=== PATIENT | female | born 1960 | race Caucasian/White ===

== ENCOUNTER → 2016-08-21 | Day surgery (SDC) | payer MEDICARE, OTHER ==
[~2016-08-21] MED LIST: ALBUAER3 INH; ESCI10TA PO; HYDR-3583 PO; HYOS0.128 PO; INCOBOTULINUMTOXINA 100 UNITS VIAL IM ONE; LIPI40TA PO; NEXI40CA PO; NITR0.4S SL; SODIUM CHLORIDE 0.9% 10 ML VIAL ONE; SYMB80AE INH; TIZA4CAP3 PO; VALT500T PO
--- NOTE | 2016-08-26 12:45 | M6 ---
cc: MANASA SALDIVAR M.D. DATE 08/21/2016 DATE OF 1960 PROCEDURE Injection botulinum toxin type A (Xeomin) right trapezius and posterior cervical musculature. PROCEDURE NOTE History and physical was completed and signed. Consent was signed. Procedure site was marked. Medications were listed and reconciled. Pain score was recorded. Allergies were noted. Time out was taken. Fluoroscopy time was recorded where applicable. Blood pressure cuff, pulse oximeter were applied. The patient was placed in the sitting position. The skin over the right trapezius and cervical area was prepped with alcohol. The areas of greatest spasticity were identified. A 27 gauge needle was used to inject a total of 200 units of Xeomin at six different locations which corresponded to the areas of greatest spasticity. Following this, the patient was observed in the recovery area with stable vital signs prior to being discharged. W. MD RADHA Page/BISMARK /10:40 AM /12:38 PM
== END | disposition home or self-care (01) ==
LOC: PHSDC 09:45
PROVIDERS: ATTEND Pain Medicine Interventional Pain Medicine
DX: G24.3 Spasmodic torticollis (principal); R51 Headache
CPT/HCPCS: 64616; J0588

== ENCOUNTER → 2017-09-09 | Day surgery (SDC) | payer MEDICARE, OTHER ==
[~2017-09-09] MED LIST changes: +BETH25TA2 PO; +BUPIVACAINE HCL PF 0.75% 30 ML VIAL ONE; +CYANOCOBALAMIN 1000 MCG/ML VIAL IM ONE; -HYOS0.128 PO; +HYOS1TAB9 PO; -INCOBOTULINUMTOXINA 100 UNITS VIAL IM ONE; +MEPERIDINE HCL 25 MG/ML VIAL IV ONE; +PROPOFOL 200 MG/20 ML AMP IV ONE; -SODIUM CHLORIDE 0.9% 10 ML VIAL ONE; +TRIAMCINOLONE ACETONIDE 40 MG/ML VIAL NERV BLOCK ONE
--- NOTE | 2017-09-11 20:27 | M6 ---
cc: MANASA CARRILLO M.D. DATE: 09/09/2017. DATE OF : 1960 PROCEDURE PERFORMED: S5 nerve neurolysis. DESCRIPTION OF THE PROCEDURE IN DETAIL: History and physical was completed and signed. Consent was signed. Procedure site was marked. Medications were listed and reconciled. Pain score was recorded. Allergies were noted. Time out was taken. Fluoroscopy time was recorded where applicable. Sedation was administered or directed by Dr. Carrillo. The patient was given oxygen. The patient was monitored by a registered nurse. Total procedure time was greater than 15 minutes. IV was started, blood pressure cuff, pulse oximeter and EKG were applied. The patient was placed in the prone position on a Seng table and sedated with small amounts of propofol titrated to effect. Vital signs were monitored and remained stable throughout the procedure. The sacral hiatus and the coccyx were palpated. The skin was prepped with alcohol and 10% Betadine solution. A 1/2-inch 25-gauge spinal needle was inserted down to the periosteum just distal to the sacral hiatus and then in a fan-like fashion across the distal part of the coccyx, the patient was given 8 mL of Marcaine 0.75%, 40 milligrams of Kenalog and 2000 micrograms of vitamin B12. Following the procedure, the patient was taken to the recovery room with stable vital signs neurologically intact. W. MD RADHA Page/LAVERNE /7:32 AM /8:21 PM
== END | disposition home or self-care (01) ==
LOC: PHSDC 06:28
PROVIDERS: ATTEND Pain Medicine Interventional Pain Medicine
DX: M54.5 Low back pain (principal)
CPT/HCPCS: 64640; 99152; J2175; J3301; J3420

== ENCOUNTER 2017-09-25 09:40 | Emergency (ER) | payer MEDICARE, OTHER ==
[~2017-09-25] VITALS: Ht 157.5 cm; Wt 72.4 kg
[~2017-09-25 09:40] MED LIST changes: -BUPIVACAINE HCL PF 0.75% 30 ML VIAL ONE; -CYANOCOBALAMIN 1000 MCG/ML VIAL IM ONE; -MEPERIDINE HCL 25 MG/ML VIAL IV ONE; -PROPOFOL 200 MG/20 ML AMP IV ONE; -TRIAMCINOLONE ACETONIDE 40 MG/ML VIAL NERV BLOCK ONE
[2017-09-25 09:46] VITALS: BP 178/87; PULSE 74; RESP 16; TEMP 98.1; O2SAT 95
--- NOTE | 2017-09-25 10:14 | PD ---
HPI Chief Complaint: Headache Time Seen by Provider: 09:53 Travel History International Travel<30 days: No Contact w/Intl Traveler<30days: No Traveled to known affect area: No History of Present Illness HPI The patient was seen and examined in the presence of the nurse. She complains of headache. Severity is moderate. It's diffuse encompassing her entire head. She had an epidural steroid injection in her neck on . That same day after the injection she developed this headache. No injury or fever. She has history of migraines and this feels totally different. Symptoms are exacerbated when she stands up and moves around and symptoms are alleviated when she lies flat. Duration 2 days. She takes no blood thinners. She has chronic neck pain and takes hydrocodone 3 times a day. She has chronic left arm numbness and paresthesia for the last 4 months. That is unchanged today. PFSH Past Medical History Arthritis: Yes Blood Disorders: No Depression: Yes Cancer: Yes (cervical/vulva) Cardiac Catheterization: No Cardiovascular Problems: Yes (internal heart monitor, syncopy x2, stress test ) High Cholesterol: Yes Chemotherapy: No Congestive Heart Failure: No Diabetes: No Diminished Hearing: No Endocrine: No Gastrointestinal Disorders: Yes GERD: Yes Glaucoma: Yes (both eyes) Genitourinary: Yes Headaches: Yes Hiatal Hernia: Yes Hypertension: No Immune Disorder: Yes (FIBROMYALGIA) Kidney Stones: Yes Musculoskeletal: Yes Neurologic: Yes (RT LEG NERVE PAIN) Psychiatric: Yes Reproductive: Yes Respiratory: Yes (copd) Migraines: Yes Radiation Therapy: Yes Ulcer: Yes PNEUMOCCOCAL Vaccine (Year): 1 ?: Not Menopausal: Yes Past Surgical History Abdominal Surgery: Yes (HERNIA X 2) AICD: No Appendectomy: Yes Body Medical Devices: SURGICAL MARKER, "INTERNAL HEART MONITOR" Cholecystectomy: Yes Coronary Artery Bypass Graft: No Eye Surgery: Yes (GLAUCOMA) Gynecologic Surgery: Yes (VULVECTOMY) Hysterectomy: Yes Joint Replacement: No Neurologic Surgery: Yes Pacemaker: No Other Surgery: Yes (HYSTERECTOMY, PARTIAL VULVECTOMY, APPENDECTOMY, AND 3 HERNIA REPAIRS) Social History Alcohol Use: No Tobacco Use: Yes (1PPD) Substance Use: No Allergies-Medications (Allergen,Severity, Reaction): Coded Allergies: acetaminophen (Unverified Allergy, Severe, 09/25/17) buprenorphine (Unverified Allergy, Severe, 09/25/17) diatrizoate meglumine (Unverified Allergy, Severe, THROAT SWELLING, ) gadobenic acid (Unverified Allergy, Severe, THROAT SWELLING, 09/25/17) gadodiamide (Unverified Allergy, Severe, THROAT SWELLING, 09/25/17) gadoteridol (Unverified Allergy, Severe, THROAT SWELLING, 09/25/17) iodixanol (Unverified Allergy, Severe, THROAT SWELLING, 09/25/17) iohexol (Unverified Allergy, Severe, THROAT SWELLING, 09/25/17) oxycodone (Unverified Allergy, Severe, 09/25/17) propoxyphene (Unverified Allergy, Severe, 09/25/17) Sulfa (Sulfonamide Antibiotics) (Unverified Allergy, Unknown, THROAT SWELLING, 09/25/17) ampicillin (Unverified Allergy, Unknown, THROAT SWELLING, 09/25/17) doxycycline (Unverified Allergy, Unknown, Rash, 09/25/17) erythromycin base (Unverified Allergy, Unknown, THROAT SWELLING, 09/25/17) minocycline (Unverified Allergy, Unknown, Rash, 09/25/17) penicillin G (Unverified Allergy, Unknown, THROAT SWELLING, 09/25/17) tigecycline (Unverified Allergy, Unknown, Rash, 09/25/17) Uncoded Allergies: ENBREL (Allergy, Severe, 09/25/17) . IV DYE (Allergy, Severe, THROAT SWELLING, 09/25/17) . Reported Meds & Prescriptions Reported Meds & Active Scripts Active Reported Bethanechol 25 Mg Tab 25 Mg PO TID Nitrostat SL (Nitroglycerin) 0.4 Mg Subl 0.4 Mg SL DIRECTED PRN 1 tablet under the tongue as needed for chest pain. Repeat every 5 minutes for a total of 3 DOSES or call 911 if NO relief. Symbicort Inh (Budesonide/Formoterol Fumarate) 80-4.5 Mcg/Act Aero 2 Puff INH Q12HR Proair Hfa 8.5 GM Inh (Albuterol Sulfate) 90 Mcg/Act Aer 2 Puff INH Q4-6H PRN 108 mcg/actuation Hyoscyamine (Hyoscyamine Sulfate) 0.125 Mg Tab 0.125 Mg PO Q4H Valtrex (Valacyclovir HCl) 500 Mg Tab 500 Mg PO PRN Lipitor (Atorvastatin Calcium) 40 Mg Tab 40 Mg PO HS Escitalopram (Escitalopram Oxalate) 10 Mg Tab 10 Mg PO DAILY Tizanidine (Tizanidine HCl) 4 Mg Cap 4 Mg PO TID Nexium (Esomeprazole DR) 40 Mg Capdr 40 Mg PO DAILY Hydrocodone-Acetaminophen 10-325 mg Tab 1 Tab PO Q8HR PRN Review of Systems General / Constitutional: No: Fever Eyes: No: Visual changes HENT: Positive: Headaches Cardiovascular: No: Chest Pain or Discomfort Respiratory: No: Shortness of Breath Gastrointestinal: No: Abdominal Pain Genitourinary: No: Dysuria Musculoskeletal: No: Pain Skin: No Rash Neurologic: Positive: Headache, Paresthesia, Sensory Disturbance, No: Weakness Psychiatric: No: Depression Endocrine: No: Polydipsia Hematologic/Lymphatic: No: Easy Bruising Physical Exam Narrative GENERAL: Well-nourished, well-developed patient with headache . SKIN: Focused skin assessment reveals no rash and nodules. Skin is Warm and dry. HEAD: Atraumatic. Normocephalic. EYES: Pupils equal and round. No scleral icterus. No injection or drainage. ENT: No nasal bleeding or discharge. Mucous membranes pink and moist. NECK: Trachea midline. No JVD. CARDIOVASCULAR: Regular rate and rhythm. No murmur appreciated. RESPIRATORY: No accessory muscle use. Clear to auscultation. Breath sounds equal bilaterally. GASTROINTESTINAL: Abdomen soft, non-tender, nondistended. Hepatic and splenic margins not palpable. MUSCULOSKELETAL: No obvious deformities. No clubbing. No cyanosis. No edema. NEUROLOGICAL: Awake and alert. No obvious cranial nerve deficits. Motor grossly within normal limits. Normal speech. PSYCHIATRIC: Appropriate mood and affect; insight and judgment normal. Data Data Last Documented VS Vital Signs Date Time Temp Pulse Resp B/P (MAP) Pulse Ox O2 Delivery O2 Flow Rate FiO2 09/25/17 09:46 98.1 74 16 178/87 (117) [address] Brain W/O Iv Contrast(Rout) (09/25/17 ) Ondansetron Inj (Zofran Inj) (09/25/17 10:15) Hydromorphone Pf Inj (Dilaudid Pf Inj) (09/25/17 10:15) MDM Medical Decision Making Medical Screen Exam Complete: Yes Emergency Medical Condition: Yes Medical Record Reviewed: Yes Differential Diagnosis Differential diagnosis includes migraine, tension headache, cluster headache, meningitis, post-epidural puncture headache Narrative Course I have reviewed the patient's electronic medical record. I gave her injection of pain and nausea medicine Brain CT is normal Recommend follow-up with Dr. Carrillo She is neurologically intact Diagnosis Primary Impression: Headache Qualified Codes: R51 - Headache Additional Instructions: The patient was advised to follow up with their physician and return if they worsen. Med/Other Pt SpecificInfo: Other Disposition: 01 DISCHARGE HOME Condition: Stable Jeremiah Garay MD Sep 25, 2017 10:14
[2017-09-25] MEDS ORDERED: HYDROmorphone HCL PF 2 MG/ML VIAL IM ONE (10:15)
[2017-09-25] MEDS ORDERED: ONDANSETRON HCL 4 MG/2 ML VIAL IM ONE (10:15)
--- NOTE | 2017-09-25 10:43 | RADRPT ---
EXAM DATE/TIME: 09/25/2017 10:21 [facility] COMPARISON: CT BRAIN W/O CONTRAST, September 12, 2014, 18:16. INDICATIONS : Headache and nausea for three days following an epidural. RADIATION DOSE: 60.94 CTDIvol (mGy) MEDICAL HISTORY : Cardiovascular disease. Chronic obstructive pulmonary disease. Cervical and vulvar cancer. SURGICAL HISTORY : None. ENCOUNTER: Initial ACUITY: 1 day PAIN SCALE: 5/10 LOCATION: cranial TECHNIQUE: Multiple contiguous axial images were obtained of the head. Using automated exposure control and adj ustment of the mA and/or kV according to patient size, radiation dose was kept as low as reasonably a chievable to obtain optimal diagnostic quality images. DICOM format image data is available electro nically for review and comparison. FINDINGS: CEREBRUM: The ventricles are normal for age. No evidence of midline shift, mass lesion, hemorrhage or acute in farction. No extra-axial fluid collections are seen. POSTERIOR FOSSA: The cerebellum and brainstem are intact. The 4th ventricle is midline. The cerebellopontine angle i s unremarkable. EXTRACRANIAL: The visualized portion of the orbits is intact. SKULL: The calvaria is intact. No evidence of skull fracture. CONCLUSION: Normal examination for a patient of this age. No significant change has occurred. Umberto Faust MD on September 25, 2017 at 10:41 Board Certified Radiologist. This report was verified electronically.
== END 2017-09-25 13:15 | disposition home or self-care (01) ==
LOC: PHED 09:40
DX: R51 Headache (principal); M79.7 Fibromyalgia; F17.210 Nicotine dependence, cigarettes, uncomplicated; R20.0 Anesthesia of skin; R20.2 Paresthesia of skin; M54.2 Cervicalgia; G89.29 Other chronic pain
CPT/HCPCS: 70450; 96372; 99284; J1170; J2405

== ENCOUNTER → 2017-11-03 | Outpatient (CLI) | payer MEDICARE, OTHER ==
--- NOTE | 2017-11-03 13:14 | RADRPT ---
EXAM DATE/TIME: 11/03/2017 13:04 [facility] COMPARISON: CHEST PA & LAT, August 11, 2015, 11:23. INDICATIONS : Evaluate for pneumonia, pneumothorax, or communicable disease. MEDICAL HISTORY : Internal Heart Monitor. Cardiovascular disease. Chronic obstructive pulmonary disease. Cervical and v ulvular cancer. SURGICAL HISTORY : Appendectomy. Hysterectomy. Cholecystectomy. ENCOUNTER: Initial ACUITY: 1 day PAIN SCORE: 0/10 LOCATION: Bilateral chest FINDINGS: PA and lateral views of the chest demonstrate the lungs to be symmetrically aerated without evidence of mass, infiltrate or effusion. The cardiomediastinal contours are unremarkable. Osseous structure s are intact. CONCLUSION: No acute disease. No significant change has occurred. Umberto Faust MD on November 03, 2017 at 13:12 Board Certified Radiologist. This report was verified electronically.
[2017-11-03 13:26] LABS: BILIRUBIN, URINE NEG (NEG); BLOOD, URINE NEG (NEG); GLUCOSE,URINE NEG (NEG); KETONE, URINE NEG (NEG); MUCUS URINE FEW /lpf (OCC); NITRITE,URINE NEG (NEG); PH, URINE 5.5 (5.0-8.5); SQUAMOUS EPITHELIAL CELL URINE 1 /hpf (0-5); URINE COLOR YELLOW (YELLW/STRAW); URINE LEUKOCYTE ESTERASE NEG (NEG)
[2017-11-03 13:28] LABS: AUTOMATED NEUTROPHIL # 7.9 TH/MM3 (1.8-7.7); BASOPHIL % 0.3 % (0.0-2.0); EOSINOPHIL # 0.1 TH/MM3 (0-0.4); EOSINOPHIL % 0.7 % (0.0-4.0); HEMATOCRIT 43.3 % (35.0-46.0); HEMOGLOBIN 14.4 GM/DL (11.6-15.3); LYMPH % 29.3 % (9.0-44.0); LYMPHOCYTE # 3.7 TH/MM3 (1.0-4.8); MEAN CELL VOLUME 92.5 FL (80.0-100.0); MEAN CORPUSCULAR HEMOGLOBIN 30.8 PG (27.0-34.0); MEAN CORPUSCULAR HGB CONC 33.3 % (32.0-36.0); MEAN PLATELET VOLUME 6.7 FL (7.0-11.0); MONO % 7.1 % (0.0-8.0); MONOCYTE # 0.9 TH/MM3 (0-0.9); NEUT % 62.6 % (16.0-70.0); PLATELET COUNT 248 TH/MM3 (150-450); RED BLOOD COUNT 4.68 MIL/MM3 (4.00-5.30); RED CELL DISTRIBUTION WIDTH 16.5 % (11.6-17.2); WHITE BLOOD COUNT 12.6 TH/MM3 (4.0-11.0)
[2017-11-03 14:10] LABS: ALBUMIN 3.3 GM/DL (3.4-5.0); AST (GOT) 15 U/L (15-37); BICARBONATE 28.8 MEQ/L (21.0-32.0); BLOOD UREA NITROGEN 8 MG/DL (7-18); CALCIUM 8.3 MG/DL (8.5-10.1); CHLORIDE 104 MEQ/L (98-107); CREATININE 0.59 MG/DL (0.50-1.00); GLOMERULAR FILTRATION RATE 105 ML/MIN (>89); GLUCOSE,FASTING 105 MG/DL (74-99); SODIUM (NA) 139 MEQ/L (136-145)
[2017-11-03 14:13] LABS: ALKALINE PHOSPHATASE 84 U/L (45-117); ALT (GPT) 18 U/L (10-53); TOTAL BILIRUBIN ADULT 0.2 MG/DL (0.2-1.0); TOTAL PROTEIN 6.9 GM/DL (6.4-8.2)
== END ==
LOC: CPRE 12:12
PROVIDERS: ATTEND Neurological Surgery
DX: Z01.812 Encounter for preprocedural laboratory examination (principal); Z01.811 Encounter for preprocedural respiratory examination; M48.02 Spinal stenosis, cervical region; M54.2 Cervicalgia
CPT/HCPCS: 36415; 71046; 80053; 81001; 85025; 85610; 85730; 87640; 87641

== ENCOUNTER 2017-11-04 08:30 | Inpatient (IN) | payer MEDICARE, OTHER ==
[~2017-11-04] VITALS: Ht 157.5 cm; Wt 86.0 kg
[2017-11-05] MEDS ORDERED: LACTATED RINGER'S 1000 ML IV PRN (06:30)
[2017-11-05] MEDS ORDERED: METOPROLOL TARTRATE 25 MG TAB PO PRN (06:30)
[2017-11-05] MEDS ORDERED: SODIUM CHLORID 0.9% 500 ML IV PRN (06:30)
[2017-11-05] MEDS ORDERED: VANCOMYCIN HCL 1000 MG VIAL ONE (06:43)
[2017-11-05] MEDS ORDERED: GELFOAM SIZE 100 ONE (06:45)
[2017-11-05] MEDS ORDERED: SODIUM CHLOR 0.9% 1000 ML INJ 1,000 ML IV SCH (06:45)
[2017-11-05] MEDS ORDERED: VANCOMYCIN 1000 MG/NS 250 ML ON-CALL IV SCH ×2 (06:45)
[2017-11-05] MEDS ORDERED: THROMBIN (TOPICAL) 5,000 UNIT VIAL ONE (06:46)
[2017-11-05] MEDS ORDERED: BUPIVACAINE/EPINEPHRINE 0.5% PF 30 ML VIAL ONE (07:33)
[2017-11-05] MEDS ORDERED: BUPIVACAINE/EPINEPHRINE 0.5% 50 ML VIAL ONE (07:34)
[2017-11-05] MEDS ORDERED: DO NOT ADM ANY ANTICOAGULANT DRUGS PRN (12:49)
[2017-11-05] MEDS ORDERED: *morphine SULFATE 8 MG/ML PERIprocedure ONLY ONE ×2 (12:57→13:15)
[2017-11-05] MEDS ORDERED: MAGNESIUM HYDROXIDE SUSP 30 ML CUP PO PRN (13:00)
[2017-11-05] MEDS ORDERED: SENNOSIDES 8.6 MG TAB PO PRN (13:00)
[2017-11-05] MEDS: BETHANECHOL CHL 25 MG TAB PO SCH ×2 (13:00→18:48)
[2017-11-05] MEDS ORDERED: MENTHOL LOZENGE BUCCAL PRN (13:00)
[2017-11-05] MEDS ORDERED: ALBUTEROL SULFATE 90 MCG/ACT HFA 8 GM INHALER INH PRN (13:00)
[2017-11-05] MEDS ORDERED: cloNIDine HCL 0.1 MG TAB PO PRN (13:00)
[2017-11-05] MEDS ORDERED: PROMETHAZINE INJ 25 MG/ML VIAL IM PRN (13:00)
[2017-11-05] MEDS ORDERED: ALUMINUM/MAGNESIUM/SIMETH 30 ML CUP PO PRN (13:00)
[2017-11-05] MEDS ORDERED: LACTULOSE SYRUP 20 GM/30 ML CUP PO PRN (13:00)
[2017-11-05] MEDS ORDERED: ONDANSETRON HCL 4 MG/2 ML VIAL IV PUSH PRN (13:00)
[2017-11-05] MEDS ORDERED: BISACODYL 10 MG SUPP RECTAL PRN (13:00)
[2017-11-05] MEDS ORDERED: ACETAMINOPHEN/HYDROcodone 325 MG/10 MG TAB PO PRN (13:00)
[2017-11-05] MEDS: HYOSCYAMINE 0.125 MG TAB PO SCH ×3 (13:00→20:18)
[2017-11-05] MEDS ORDERED: NITROGLYCERIN 0.4 MG SL 25 TABS/BTL SL PRN (13:00)
[2017-11-05] MEDS ORDERED: DEXAMETHASONE SOD PHOS 4 MG/ML VIAL IV PUSH SCH (13:00)
[2017-11-05] MEDS ORDERED: SODIUM CHLORIDE 0.9% FLUSH 10 ML FLUSH IV FLUSH PRN (13:00)
[2017-11-05] MEDS ORDERED: ACETAMINOPHEN 325 MG TAB PO PRN (13:00)
--- NOTE | 2017-11-05 13:00 | PD.OP ---
Marietta Sanchez MD Operative Report Date of Surgery: Nov 05, 2017 Preoperative Diagnosis: Intractable neck pain with bilateral radiculopathy; C6-7 degenerative disc disease with disc osteophyte complex and associated spinal/foraminal stenosis; history of C5-6 anterior cervical fusion with plate placement Postoperative Diagnosis: Same Procedure: Anterior cervical C6-7 microdiscectomy with fusion; anterior C6-7 cervical plate placement; removal of anterior C5-6 cervical plate; C6-7 interbody cage placement; microsurgical technique Anesthesia: Gen. endotracheal by Tigist glaser Surgeon: Kenan Interiano M.D. [employer] [facility] Manager(s): Basilio Almendarez Operation and Findings: Following administration of general endotracheal anesthesia, the patient received a gram of vancomycin and Decadron 10 mg intravenously. Sequential compression devices were placed in supine position on a Seng table and all pressure points adequately padded. The head secured in a donut and anterior cervical region then shaved and prepped with Chloraprep and sterilely draped with Ioban along with the usual sterile draping. A transverse skin incision on the left side of the neck using the previous incision site was then made after infiltrating the skin with 0.5% Marcaine with epinephrine solution extending down through the platysma. At the anterior border of the sternocleidomastoid further dissection was undertaken developing a plane between the carotid sheath laterally and the trachea esophagus medially. The prevertebral fascia was exposed and dissected out. The medial attachments of the longus colli muscles were detached and a self-retaining retractor used for exposure. The C5-6 disc space was localized the along with anterior cervical plate and lateral fluoroscopy. In order to access the exposure was C6-7 level the plate was removed and [place] distraction screws 14 mm length were placed one in the C6 and one in the C7 body for interbody distraction and exposure. Fusion at the C5 -6 level was evident. There was significant disc degeneration with disc height collapse and anterior osteophytes noted at the C6-7 level and the osteophytes were resected with a Leksell and annulus incised with a 15 blade and further dissection undertaken using microtechnique with microscope magnification. Diskectomy was undertaken with pituitaries and the endplates were also decorticated with curettes and drill bit. And more posteriorly there was disk osteophyte complex compressing the thecal sac along with a significant uncovertebral joint hypertrophy with foraminal stenosis which was decompressed along with removal of the posterior longitudinal ligaments at both levels. The foramen was decompressed bilaterally using a Kerrison's and palpation with a nerve hook, the exiting nerve roots were felt to be free. The area was then copiously irrigated. I then placed a Peek cage packed with local autograft bone at the C6-7 interspace under fluoroscopy guidance. Rockbridge distraction pins were removed and the holes plugged with Gelfoam for hemostasis. In order to facilitate the fusion and provide stabilization, a Precision spine cervical plate was then placed with two 14 mm variable angle screws in the C6 body and two 14 mm fixed angle screws in the C7 body. The plate screw locking mechanism was then engaged. AP and lateral fluoroscopy confirmed good placement of the construct and the retractor was then removed. Muscular bleeding points were cauterized with bipolar cautery and Gelfoam was then also used for hemostasis which was removed. The platysma was then approximated using 3-0 Vicryl interrupted stitches and 3-0 Vicryl subcuticular stitch also placed in an interrupted fashion, and final skin closure was with Mastisol and Steri-Strips. Sterile dressing was then applied. Her neck was immobilized in a Seminole collar. The patient was then extubated and taken to the recovery room. There are no intraoperative complications and all sponge and needle counts were correct at the end of procedure. Estimated blood loss was about 50 cc. The patient did undergo intraoperative neurologic monitoring which remained stable throughout the surgery. Kenan Interiano MD Nov 05, 2017 13:00
[2017-11-05] MEDS ORDERED: HYDR-3583 PO (13:03)
[2017-11-05] MEDS ORDERED: TIZA4CAP3 PO (13:03)
[2017-11-05] MEDS ORDERED: MIDAZOLAM HCL 2 MG/2 ML VIAL ONE (13:03)
[2017-11-05] MEDS ORDERED: NS + KCL 20 MEQ INJ 1,000 ML IV SCH (13:15)
[2017-11-05] MEDS ORDERED: NEOSTIGMINE 5 MG/5 ML SYRINGE IV PUSH ONE (13:24)
[2017-11-05] MEDS ORDERED: ePHEDrine/NS 25 MG/5 ML SYRINGE IV ONE (13:24)
[2017-11-05] MEDS ORDERED: PROPOFOL 200 MG/20 ML AMP IV ONE (13:24)
[2017-11-05] MEDS ORDERED: ONDANSETRON HCL 4 MG/2 ML VIAL IV ONE (13:24)
[2017-11-05] MEDS ORDERED: GLYCOPYRROLATE 1 MG/5 ML SYRINGE IV PUSH ONE (13:24)
[2017-11-05] MEDS ORDERED: DEXAMETHASONE SOD PHOS 4 MG/ML VIAL IV ONE (13:24)
[2017-11-05] MEDS ORDERED: NORMOSOL R INJ 1,000 ML IV ONE (13:24)
[2017-11-05] MEDS ORDERED: PHENYLEPH/NS 1000 MCG/10 ML SYR IV ONE (13:24)
[2017-11-05] MEDS ORDERED: ROCURONIUM INJ 50 MG/5 ML SYRINGE IV PUSH ONE (13:24)
[2017-11-05] MEDS ORDERED: LIDOCAINE HCL 1% PF 5 ML SYRINGE OTHER ONE (13:24)
--- NOTE | 2017-11-05 13:44 | RADRPT ---
EXAM DATE/TIME: 11/05/2017 09:39 [facility] COMPARISON: No previous studies available for comparison. INDICATIONS : C5-6 hardware removal with C6-7 anterior cervical disc fusion. MEDICAL HISTORY : Chronic obstructive pulmonary disease. Gastroesophageal reflux disease. Osteoarthritis. Cervical carcimona. SURGICAL HISTORY : Appendectomy. Cholecystectomy. Fusion, cervical. Hysterectomy. Loop recorder. ENCOUNTER: Initial ACUITY: 1 day PAIN SCORE: Non-responsive. LOCATION: Cervical spine. FINDINGS: AP and lateral views of the cervical spine were obtained and demonstrate the patient status post lowe r cervical fusion at the C6-7 level with screw plate fixation device. There are metallic markers in t he region of the interspace. The patient appears status post fusion of the C5-6 level. A nasogastric tube and temperature probe are present. CONCLUSION: 1. Status post anterior cervical fusion at the C6-7 level. 2. The patient also appears status post more remote fusion at C5-6 with no hardware. Too Mcdowell MD on November 05, 2017 at 13:40 Board Certified Radiologist. This report was verified electronically.
[2017-11-05] MEDS ORDERED: HYDROmorphone HCL PF 2 MG/ML VIAL ONE (13:51)
[2017-11-05 16:00] VITALS: BP 126/66; PULSE 78; RESP 16; TEMP 98.4; O2SAT 93
[2017-11-05] MEDS: MORPHINE SULFATE 2 MG/ML INJ IV PUSH PRN ×2 (17:03→20:20)
[2017-11-05] MEDS: DEXAMETHASONE SOD PHOS 4 MG/ML VIAL IV PUSH SCH ×2 (17:04→20:19)
[2017-11-05] MEDS: ACETAMINOPHEN/HYDROcodone 325 MG/10 MG TAB PO PRN ×2 (18:52→23:24)
[2017-11-05 20:00] VITALS: BP 119/70; PULSE 78; RESP 16; TEMP 98; O2SAT 96
[2017-11-05] MEDS: DOCUSATE SODIUM 50 MG/SENNA 8.6 MG TAB PO SCH (20:18)
[2017-11-05] MEDS: ATORVASTATIN 40 MG TAB PO SCH (20:19)
[2017-11-05] MEDS: SODIUM CHLORIDE 0.9% FLUSH 10 ML FLUSH IV FLUSH SCH (20:37)
[2017-11-05] MEDS: BUDESONIDE-FORMOTEROL 80/4.5 MCG INHALER INH SCH (20:38)
[2017-11-05] MEDS ORDERED: ZOLPIDEM TARTRATE 5 MG TAB PO PRN (21:00)
[2017-11-05] MEDS: CYCLOBENZAPRINE HCL 10 MG TAB PO PRN (22:33)
[2017-11-05] MEDS: VANCOMYCIN INJ 1,000 MG in SODIUM CHLOR 0.9% 250 ML INJ 250 ML IV SCH (22:34)
[2017-11-06] VITALS: BP 145/72; PULSE 72; RESP 16; TEMP 97.8; O2SAT 95
[2017-11-06] MEDS: HYOSCYAMINE 0.125 MG TAB PO SCH ×6 (00:38→20:50)
[2017-11-06] MEDS: MORPHINE SULFATE 2 MG/ML INJ IV PUSH PRN ×5 (00:42→20:51)
[2017-11-06] MEDS: DEXAMETHASONE SOD PHOS 4 MG/ML VIAL IV PUSH SCH ×2 (03:54→22:56)
[2017-11-06] MEDS: ACETAMINOPHEN/HYDROcodone 325 MG/10 MG TAB PO PRN ×5 (03:55→22:55)
[2017-11-06 04:00] VITALS: BP 139/77; PULSE 64; RESP 16; TEMP 98.2; O2SAT 95
[2017-11-06 08:00] VITALS: BP 136/73; PULSE 72; RESP 16; TEMP 98; O2SAT 97
[2017-11-06] MEDS: DOCUSATE SODIUM 50 MG/SENNA 8.6 MG TAB PO SCH ×2 (08:07→20:50)
[2017-11-06] MEDS: ESCITALOPRAM OXALATE 10 MG TAB PO SCH (08:08)
[2017-11-06] MEDS: BETHANECHOL CHL 25 MG TAB PO SCH ×3 (08:08→18:17)
[2017-11-06] MEDS: PANTOPRAZOLE SOD 40 MG DELAYED RELEASE TAB PO SCH (08:08)
[2017-11-06] MEDS: BUDESONIDE-FORMOTEROL 80/4.5 MCG INHALER INH SCH ×2 (08:09→20:52)
[2017-11-06] MEDS: SODIUM CHLORIDE 0.9% FLUSH 10 ML FLUSH IV FLUSH SCH ×2 (08:09→20:52)
[2017-11-06] MEDS: VANCOMYCIN INJ 1,000 MG in SODIUM CHLOR 0.9% 250 ML INJ 250 ML IV SCH (10:00)
[2017-11-06 12:00] VITALS: BP 132/62; PULSE 68; RESP 16; TEMP 98.1; O2SAT 95
--- NOTE | 2017-11-06 16:31 | HHI.NSPN ---
(Timo Westbrook) History Chief Complaint: Pain and numbness to left shoulder and arm (Timo Westbrook) Interval History 11/05: The patient presented to [facility] to have an anterior cervical C6 -7 microdiscectomy with fusion, cervical plate and interbody cage placement and removal of an anterior C5-6 cervical plate. Post-operatively she was transferred to a regular med/surg floor. 11/06: The patient is awake and alert laying in bed watching TV and visiting with her . She complains of pain radiating from the neck into to the left shoulder and down the left upper extremity which is also numb. She does say that she has numbness to the right arm but it does not extend down the rest of the extremity. She has no pain to the right upper extremity. She denies any surgical incision pain, sore throat or difficulty swallowing. She does have some left upper extremity weakness and decreased sensation upon examination. The patient states that her pain is continuous but varies in intensity. She reports that the pain medication last approximately two hours. Nursing reports that the patient is up and ambulating on her own without any difficulty. (Timo Westbrook) Exam Results 11/04/17 11/04/17 11/05/17 11/05/17 11/06/17 11/06/17 05:59 17:59 05:59 17:59 05:59 17:59 Intake Total 1900 ml 250 ml 360 ml Output Total 215 ml Balance 1685 ml 250 ml 360 ml Intake Oral 360 ml IV Total 1900 ml 250 ml Output Urine Total 165 ml Estimated Blood Loss 50 ml # Voids 6 # Bowel Movements 0 Vital Signs Date Time Temp Pulse Resp B/P (MAP) Pulse Ox O2 Delivery O2 Flow Rate FiO2 11/06/17 12:00 98.1 68 16 132/62 (85) 95 11/06/17 08:00 98.0 72 16 136/73 (94) 97 11/06/17 04:55 18 11/06/17 04:00 98.2 64 16 139/77 (97) 95 11/06/17 00:00 97.8 72 16 145/72 (96) 95 11/05/17 20:25 18 11/05/17 20:00 98.0 78 16 119/70 (86) 96 11/05/17 16:00 98.4 78 16 126/66 (86) 93 11/05/17 14:15 90 16 135/76 (95) 94 Nasal Cannula 3 11/05/17 14:00 91 16 132/80 (97) 96 Nasal Cannula 3 11/05/17 13:45 90 16 133/75 (94) 95 Nasal Cannula 3 11/05/17 13:30 98 16 147/75 (99) 93 Nasal Cannula 3 11/05/17 13:20 14 11/05/17 13:15 96 16 147/79 (101) 93 Nasal Cannula 3 11/05/17 13:02 14 11/05/17 13:00 99 16 155/77 (103) 92 Nasal Cannula 3 11/05/17 12:49 98.2 102 16 130/75 (93) 93 Nasal Cannula 3 11/05/17 07:15 99.0 70 18 148/96 (113) 96 (Timo Westbrook) Physical Examination GENERAL: Awake & alert in bed visiting w/ & watching TV. Affect essentially normal. Readily interacts. No apparent distress. HEENT: Normocephalic, atraumatic. NECK: Kern cervical collar in place. Midline cervical spine mildly TTP. Left anterior neck surgical incision moderately TTP, dressing dry & intact. Neck supple. No JVD. Trachea midline. RESPIRATORY: CTAB w/o W/R/R, equal excursion, nonlaboured, on RA. CARDIOVASCULAR: S1S2 w/RRR w/o M/G/R. GASTROINTESTINAL: Abdomen soft, nontender, positive bowel sounds. MUSCULOSKELETAL: WANG spontaneously & purposefully. No evident clubbing or deformity. NEUROLOGICAL: AAOx3. Speech clear & appropriate. Follows simple commands w/o difficulty. Decreased sensation to the LUE and right arm, o/w intact to light touch to the rest of the extremities. Motor strength to the LUE is 3+ to 4/5 to the hand intrinsics & extensors, 4 to 4+/5 to the wrist flexors, 4/5 to the triceps, 4+/5 to the biceps and deltoid; the right hand intrinsics & extrinsics is 4/5; o/w it is 5/5 to the major flexor & extensor muscle groups of the RUE & LLE. (Timo Westbrook) Lab, Micro, Other Results Recent Impressions Cervical Spine X-Ray 11/05/17 0000 Signed Impressions: Service Date/Time: Sunday, November 05, 2017 09:39 - CONCLUSION: 1. Status post anterior cervical fusion at the C6-7 level. 2. The patient also appears status post more remote fusion at C5-6 with no hardware. oTo Mcdowell MD (Timo Westbrook) Medical Decision Making Impression and Plan Impression: 1. Intractable neck pain with bilateral radiculopathy 2. C6-7 degenerative disc disease with disc osteophyte complex and associated spinal/foraminal stenosis 3. History of C5-6 anterior cervical fusion with plate placement Patient doing well except for residual pain & numbness to the LUE. Some residual numbness to the right arm. Mild weakness to the LUE & right hand intrinsics/extrinsics. POD #1 () s/p: Anterior cervical C6-7 microdiscectomy with fusion; anterior C6-7 cervical plate placement; removal of anterior C5-6 cervical plate; C6-7 interbody cage placement; microsurgical technique Plan: Neuro checks. Lime J cervical collar. Continue current pain medication regimen. (Timo Westbrook) Attending Statement The exam, history, and the medical decision-making described in the above note were completed with the assistance of the mid-level provider. I reviewed and agree with the findings presented. I attest that I had a [id number] encounter with the patient on the same day, and personally performed and documented my assessment and findings in the medical record. Patient complains of persistent rather severe left upper extremity pain, not significantly changed compared to preoperative. On examination, triceps 4/5 strength. Complains of intermittent sensory changes in the upper extremities but presently on examination no significant numbness or paresthesias. Romeo response S of bilateral Sensorimotor exam intact lower extremities. Dressing dry and intact. No hoarseness. Discussed with patient She states that she is too painful to discharge home today. Continue present medications Add Decadron His up a discharge for 118 (Jairo Anderson MD) Timo Westbrook Nov 06, 2017 16:30 Jairo Anderson MD Nov 06, 2017 21:10
[2017-11-06 20:00] VITALS: BP 119/74; PULSE 66; RESP 17; TEMP 97.3; O2SAT 95
[2017-11-06] MEDS: ATORVASTATIN 40 MG TAB PO SCH (20:50)
[2017-11-06 23:45] VITALS: BP 179/81; PULSE 82; RESP 18; TEMP 97.4; O2SAT 93
[2017-11-07] MEDS: CYCLOBENZAPRINE HCL 10 MG TAB PO PRN (00:23)
[2017-11-07] MEDS: HYOSCYAMINE 0.125 MG TAB PO SCH ×3 (00:23→09:37)
[2017-11-07] MEDS: MORPHINE SULFATE 2 MG/ML INJ IV PUSH PRN (02:28)
[2017-11-07 04:20] VITALS: BP 164/78; PULSE 69; RESP 16; TEMP 98; O2SAT 92
[2017-11-07] MEDS: ACETAMINOPHEN/HYDROcodone 325 MG/10 MG TAB PO PRN ×2 (06:26→10:18)
[2017-11-07] MEDS: DEXAMETHASONE SOD PHOS 4 MG/ML VIAL IV PUSH SCH (06:37)
[2017-11-07 08:00] VITALS: BP 166/87; PULSE 70; RESP 16; TEMP 98.2; O2SAT 93
[2017-11-07] MEDS: SODIUM CHLORIDE 0.9% FLUSH 10 ML FLUSH IV FLUSH SCH (09:00)
[2017-11-07] MEDS: BUDESONIDE-FORMOTEROL 80/4.5 MCG INHALER INH SCH (09:00)
[2017-11-07] MEDS: PANTOPRAZOLE SOD 40 MG DELAYED RELEASE TAB PO SCH (09:38)
[2017-11-07] MEDS: ESCITALOPRAM OXALATE 10 MG TAB PO SCH (09:38)
[2017-11-07] MEDS: DOCUSATE SODIUM 50 MG/SENNA 8.6 MG TAB PO SCH (09:38)
[2017-11-07] MEDS: BETHANECHOL CHL 25 MG TAB PO SCH (09:38)
--- NOTE | 2017-11-07 11:10 | HHI.DCPOC ---
Discharge Care Plan Your Health Problems Are: Difficulty with ADL Incision/Drains Difficulty to Swallow Chronic Pain Goals to Promote Your Health * To prevent worsening of your condition and complications * To maintain your health at the optimal level Directions to Meet Your Goals Take your medications as prescribed Follow your dietary instruction Follow activity as directed Keep your appointments as scheduled Take your immunizations and boosters as scheduled If your symptoms worsen call your PCP, if no PCP go to Urgent Care Center or Emergency Room Smoking is Dangerous to Your Health. Avoid second hand smoke Call the 24-hour hour crisis hotline for domestic abuse at Jairo Anderson MD Nov 07, 2017 11:10
== END 2017-11-07 13:25 | disposition home or self-care (01) | DRG 473 ==
LOC: HSDI 11-05 06:06 → N06B 11-05 14:27 → EDSTATUS 11-15 08:30
PROVIDERS: ADMIT Neurological Surgery; ATTEND Neurological Surgery
PROC: 0RT30ZZ Resection of Cervical Vertebral Disc, Open Approach (ICD-10-PCS; 2017-11-05)
PROC: 01N10ZZ Release Cervical Nerve, Open Approach (ICD-10-PCS; 2017-11-05)
PROC: 0RP104Z Removal of Internal Fixation Device from Cervical Vertebral Joint, Open Approach (ICD-10-PCS; 2017-11-05)
PROC: 0RG10A0 Fusion of Cervical Vertebral Joint with Interbody Fusion Device, Anterior Approach, Anterior Column, Open Approach (ICD-10-PCS; principal; 2017-11-05 08:30)
DX: M50.123 Cervical disc disorder at C6-C7 level with radiculopathy (principal); F32.9 Major depressive disorder, single episode, unspecified; J44.9 Chronic obstructive pulmonary disease, unspecified; M48.02 Spinal stenosis, cervical region; M25.78 Osteophyte, vertebrae; K21.9 Gastro-esophageal reflux disease without esophagitis; Z98.1 Arthrodesis status; Z87.891 Personal history of nicotine dependence; F41.9 Anxiety disorder, unspecified; M19.90 Unspecified osteoarthritis, unspecified site; Z85.41 Personal history of malignant neoplasm of cervix uteri; E78.00 Pure hypercholesterolemia, unspecified; M79.7 Fibromyalgia
CPT/HCPCS: 72040; 76000; 94150; C1713; J1100; J1170; J2250; J2270; J2370; J2405; J2710; J3010; J3370; J3480; J7050; J7120; L0150; L0172